=== PATIENT | male | born 2000 | race Caucasian/White ===

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

== ENCOUNTER 2024-05-20 10:27 | Day surgery (SDC) | payer BC ==
[~2024-05-20 10:27] MED LIST changes: -LACTATED RINGERS 1,000 ML IV SCH; +LIDOCAINE 1% (10MG/ML) FOR IV START INTRADERMA PRN
[2024-05-20] MEDS: IV FLUID CONTINUATION 1,000 ML IV ONE (11:11)
[2024-05-20] MEDS: LACTATED RINGERS 1,000 ML IV SCH (11:14)
[2024-05-20 11:20] VITALS: RESP 18; TEMP 97.7
[2024-05-20] MEDS ORDERED: PROPOFOL 10 MG/ML 20 ML VIAL IV ONE (11:54)
--- NOTE | 2024-05-20 12:06 | P.PCN ---
Date of Procedure: 05/20/24 Procedure(s) Performed: BRIEF HISTORY: Patient is a 33-year-old, pleasant, white male with history of familial adenomatous polyposis diagnosed in 2019 and is s/p total colectomy. He is scheduled for an upper endoscopy as part of screening for upper GI malignancy.. PROCEDURE PERFORMED: Esophagogastroduodenoscopy biopsy. PREOPERATIVE DIAGNOSIS: History of FAP status post total colectomy/screening for upper GI malignancy. IV sedation per anesthesia. PROCEDURE: After informed consent was obtained, the patient was brought into the endoscopy unit. IV sedation was administered by Anesthesia under continuous monitoring. Initially the Olympus GIF-140 video endoscope was inserted into the mouth. Esophagus intubated without any difficulty. It was gradually advanced into the stomach and duodenum and carefully examined. The bulb and the second part of the duodenum appeared normal. The colon was identified which appeared normal. The scope at this time was withdrawn to the stomach, adequately insufflated with air, and upon careful examination, mucosa of the antrum, body, cardia and the fundus appeared normal. There were multiple small 2 to 3 mm gastric fundal polyps identified which were biopsied. The scope was then withdrawn into the esophagus. The GE junction was located at 39 cm from the incisors. The esophagus appeared normal. There were no erosions or ulcerations seen and the patient tolerated the procedure well. IMPRESSION: 1. Small gastric fundal polyps in the fundus of the stomach s/p biopsy. 2. Major pappila appeared normal. RECOMMENDATIONS: The findings of this examination were discussed with the patient as well as his family. He was advised to follow with the biopsy results and have repeat upper endoscopy every 2 to 3 years.
[2024-05-20 12:27] VITALS: BP 110/70; PULSE 72
== END 2024-05-20 12:52 | disposition home or self-care (01) ==
LOC: ORWHC2ENDO 10:27
PROVIDERS: ATTEND Internal Medicine Gastroenterology
DX: K31.7 Polyp of stomach and duodenum (principal); Z90.49 Acquired absence of other specified parts of digestive tract; Z98.890 Other specified postprocedural states
CPT/HCPCS: 88305; 43239; J2704